=== PATIENT | male | born 1975 | race Caucasian/White ===

== ENCOUNTER 2017-11-16 07:51 | Emergency (ER) | payer MEDICAID ==
[2017-11-16] MEDS: FLUORESCEIN STRIP LEFT EYE (08:58)
[2017-11-16] MEDS: TETRACAINE 0.5% 4 ML OPH LEFT EYE (08:58)
[2017-11-16] MEDS: OPHTHALMIC IRRIG SOLUTION 120 ML LEFT EYE (08:58)
== END 2017-11-16 09:53 | disposition home or self-care (01) ==
LOC: FTE 07:51
DX: H57.8 Other specified disorders of eye and adnexa (principal)
CPT/HCPCS: 99283; Z7610